=== PATIENT | male | born 1960 | race Caucasian/White ===

== ENCOUNTER 2017-10-22 01:45 | Inpatient (IN) | payer OTHER ==
[~2017-10-22] VITALS: Ht 177.8 cm; Wt 97.3 kg
[2017-10-22 02:25] LABS: Basophils # (auto) 0.2 uL; Eosinophils # (auto) 0.1 uL; Eosinophils % (auto) 0.6 % (0.0-7.0); Hemoglobin 16.4 g/dL (13.5-17.5); Lymphocytes # (auto) 3.2 uL; Lymphocytes % (auto) 20.9 % (10.0-50.0); Mean Corpuscular Hemoglobin 31.5 pg (28.0-32.0); Mean Corpuscular Hgb Conc. 34.2 g/dL (32.0-36.0); Monocytes # (auto) 0.9 uL; Monocytes % (auto) 5.6 % (0.0-12.0); Neutrophils # (auto) 11.1 uL; Neutrophils % (auto) 71.9 % (37.0-80.0); Platelet Count (auto) 289 10^3/uL (140-450); Red Blood Cells 5.22 10^6/uL (4.5-5.90); Red Cell Distribution Width 14.5 % (11.8-14.3); White Blood Cell 15.5 10^3/uL (4.4-10.8)
[2017-10-22 02:37] LABS: INR 0.92 (0.9-1.15); Partial Thromboplastin Time 22.9 sec (22.64-33.71)
[2017-10-22 02:40] LABS: Albumin 3.8 g/dL (3.4-5.0); BUN/Creatinine Ratio 13.9; Bilirubin, Total 0.7 mg/dL (0.2-1.0); Calcium 8.9 mg/dL (8.5-10.1); Total Protein 7.7 g/dL (6.4-8.2)
[2017-10-22] MEDS ORDERED: SODIUM CHLORIDE 0.9% 1,000 ML IV ONE (07:26)
[2017-10-22 07:29] LABS: Alcohol, Urine < 3.0 mg/dL (0-5); Amphetamine Screen, Urine NEGATIVE (NEGATIVE); Barbiturate Scree,Urine NEGATIVE (NEGATIVE); Benzodiazephine Screen, Urine NEGATIVE (NEGATIVE); Cocaine Screen, Urine NEGATIVE (NEGATIVE); Phencyclidine Screen, Urine NEGATIVE (NEGATIVE)
[2017-10-22 07:30] LABS: Urine Bacteria NONE SEEN /hpf (None Seen); Urine Blood 3+ /uL (Negative); Urine Mucus FEW (None Seen); Urine Specific Gravity 1.015 (1.001-1.035); Urine WBC 1 /hpf (0 - 3)
[2017-10-22] MEDS ORDERED: cefTRIAXone 1GM/10ml IVPUSH 10 ML IV ONE (07:30)
[2017-10-22] MEDS ORDERED: metroNIDAZOLE 500MG/100ML 100 ML IV ONE (07:30)
[2017-10-22 07:31] LABS: Cannabinoid Screen, Urine NEGATIVE (NEGATIVE); Opiate Scree,Urine NEGATIVE (NEGATIVE)
[2017-10-22] MEDS ORDERED: LIDOCAINE 2% JELLY 11ml (GLYDO) ONE (08:27)
[2017-10-22] MEDS ORDERED: TEMAZEPAM 15 MG CAP PO PRN (13:00)
[2017-10-22] MEDS ORDERED: LORazepam 0.5 MG TAB PO PRN (13:00)
[2017-10-22] MEDS ORDERED: PROMETHAZINE HCL 25 MG/ML 1ML IV PRN (13:00)
[2017-10-22] MEDS ORDERED: MORPHINE SULF INJ 2 MG/ML SYRINGE 1ML IV PRN (13:00)
[2017-10-22] MEDS ORDERED: NITROGLYCERIN 0.4 MG SL TAB SL PRN (13:00)
[2017-10-22] MEDS ORDERED: MORPHINE SULFATE 4 MG/ML SYR/VIAL IV PRN (13:00)
[2017-10-22] MEDS: SODIUM CHLORIDE 0.9% 1,000 ML IV SCH (13:54)
[2017-10-22] MEDS: FAMOTIDINE (10MG/ML) 2ML VL IV SCH ×2 (13:54→22:13)
[2017-10-22] MEDS: ACETAMINOPHEN 500 MG TAB PO PRN ×2 (15:37→22:14)
[2017-10-22 16:45] VITALS: BP 151/88
[2017-10-22] MEDS: metroNIDAZOLE 500MG/100ML 100 ML IV SCH (17:43)
[2017-10-22 21:55] VITALS: BP 126/86
[2017-10-23] MEDS: SODIUM CHLORIDE 0.9% 1,000 ML IV SCH ×3 (00:08→18:59)
[2017-10-23] MEDS: metroNIDAZOLE 500MG/100ML 100 ML IV SCH ×4 (00:08→17:37)
[2017-10-23 05:05] VITALS: BP 145/82
[2017-10-23 06:42] LABS: Basophils # (auto) 0.1 uL; Basophils % (auto) 0.6 % (0.0-2.0); Eosinophils # (auto) 0.1 uL; Eosinophils % (auto) 0.5 % (0.0-7.0); Hematocrit 45.4 % (41.0-53.0); Hemoglobin 15.4 g/dL (13.5-17.5); Lymphocytes # (auto) 1.7 uL; Lymphocytes % (auto) 14.6 % (10.0-50.0); Mean Corpuscular Hemoglobin 31.6 pg (28.0-32.0); Mean Corpuscular Hgb Conc. 33.9 g/dL (32.0-36.0); Mean Corpuscular Volume 93.1 fL (80.0-100.0); Monocytes % (auto) 8.9 % (0.0-12.0); Neutrophils # (auto) 8.7 uL; Neutrophils % (auto) 75.4 % (37.0-80.0); Nucleated Red Blood Cells % 0.1 %; Platelet Count (auto) 221 10^3/uL (140-450); Red Blood Cells 4.87 10^6/uL (4.5-5.90); Red Cell Distribution Width 14.6 % (11.8-14.3); White Blood Cell 11.6 10^3/uL (4.4-10.8)
[2017-10-23 07:11] LABS: Albumin 3.2 g/dL (3.4-5.0); Calcium 8.8 mg/dL (8.5-10.1); Potassium 3.6 mmol/L (3.5-5.1)
[2017-10-23 07:12] LABS: BUN/Creatinine Ratio 13.7
[2017-10-23 08:57] VITALS: BP 161/89
[2017-10-23] MEDS: cefTRIAXone 1GM/10ml IVPUSH 10 ML IV SCH (09:00)
[2017-10-23] MEDS: ENOXAPARIN SOD 40 MG/0.4 ML SYRINGE SC SCH (09:42)
[2017-10-23] MEDS: FAMOTIDINE (10MG/ML) 2ML VL IV SCH ×2 (09:42→22:08)
[2017-10-23 11:31] VITALS: BP 150/90
[2017-10-23] MEDS: HYDROcodone-ACET 5/325MG TAB PO PRN ×2 (13:38→20:39)
[2017-10-23] MEDS ORDERED: TAMSULOSIN HYDROCHLORIDE 0.4 MG CAP PO ONE (15:30)
[2017-10-23 16:47] VITALS: BP 136/83
[2017-10-23] MEDS: ACETAMINOPHEN 500 MG TAB PO PRN (18:09)
[2017-10-23] MEDS ORDERED: MORPHINE SULFATE 4 MG/ML SYR/VIAL IV PRN (20:15)
[2017-10-23 23:15] VITALS: BP 134/78
[2017-10-24] MEDS: metroNIDAZOLE 500MG/100ML 100 ML IV SCH ×5 (00:14→23:55)
[2017-10-24] MEDS: SODIUM CHLORIDE 0.9% 1,000 ML IV SCH ×2 (04:59→14:59)
[2017-10-24 05:28] VITALS: BP 134/76
[2017-10-24 08:06] LABS: Basophils # (auto) 0.1 uL; Basophils % (auto) 1.2 % (0.0-2.0); Eosinophils # (auto) 0 uL; Eosinophils % (auto) 0.2 % (0.0-7.0); Hematocrit 44.7 % (41.0-53.0); Hemoglobin 15.4 g/dL (13.5-17.5); Lymphocytes # (auto) 1.2 uL; Lymphocytes % (auto) 11.4 % (10.0-50.0); Mean Corpuscular Hemoglobin 31.8 pg (28.0-32.0); Mean Corpuscular Hgb Conc. 34.3 g/dL (32.0-36.0); Mean Corpuscular Volume 92.6 fL (80.0-100.0); Monocytes # (auto) 0.8 uL; Monocytes % (auto) 7.5 % (0.0-12.0); Neutrophils # (auto) 8.8 uL; Neutrophils % (auto) 79.7 % (37.0-80.0); Platelet Count (auto) 228 10^3/uL (140-450); Red Blood Cells 4.83 10^6/uL (4.5-5.90); Red Cell Distribution Width 14.5 % (11.8-14.3)
[2017-10-24 08:13] LABS: BUN/Creatinine Ratio 11.4; Calcium 8.7 mg/dL (8.5-10.1); Potassium 3.6 mmol/L (3.5-5.1)
[2017-10-24 09:00] VITALS: BP 144/73
[2017-10-24] MEDS: cefTRIAXone 1GM/10ml IVPUSH 10 ML IV SCH (09:04)
[2017-10-24] MEDS: FAMOTIDINE (10MG/ML) 2ML VL IV SCH ×2 (09:04→22:00)
[2017-10-24] MEDS: TAMSULOSIN HYDROCHLORIDE 0.4 MG CAP PO SCH (09:05)
[2017-10-24] MEDS: ACETAMINOPHEN 500 MG TAB PO PRN (09:05)
[2017-10-24] MEDS: ENOXAPARIN SOD 40 MG/0.4 ML SYRINGE SC SCH (09:05)
[2017-10-24] MEDS: ASPirin-EC 81 mg tab PO SCH (10:24)
[2017-10-24 13:00] VITALS: BP 137/70
[2017-10-24 16:46] VITALS: BP 133/76
[2017-10-24 22:00] VITALS: BP 139/86
[2017-10-24] MEDS: METOPROLOL TARTRATE 25 MG TAB PO SCH (22:51)
[2017-10-25] MEDS: HYDROcodone-ACET 5/325MG TAB PO PRN (00:56)
[2017-10-25] MEDS: SODIUM CHLORIDE 0.9% 1,000 ML IV SCH ×2 (00:59→10:59)
[2017-10-25 05:00] VITALS: BP 132/91
[2017-10-25] MEDS: metroNIDAZOLE 500MG/100ML 100 ML IV SCH (06:32)
[2017-10-25 08:15] VITALS: BP 132/94
[2017-10-25 08:34] LABS: Basophils # (auto) 0.1 uL; Basophils % (auto) 0.8 % (0.0-2.0); Eosinophils # (auto) 0.1 uL; Hematocrit 41.7 % (41.0-53.0); Hemoglobin 14.3 g/dL (13.5-17.5); Lymphocytes # (auto) 1.5 uL; Lymphocytes % (auto) 18.5 % (10.0-50.0); Mean Corpuscular Hemoglobin 31.6 pg (28.0-32.0); Mean Corpuscular Hgb Conc. 34.2 g/dL (32.0-36.0); Mean Corpuscular Volume 92.4 fL (80.0-100.0); Monocytes % (auto) 12.3 % (0.0-12.0); Neutrophils # (auto) 5.4 uL; Neutrophils % (auto) 67.4 % (37.0-80.0); Platelet Count (auto) 233 10^3/uL (140-450); Red Blood Cells 4.52 10^6/uL (4.5-5.90); White Blood Cell 7.9 10^3/uL (4.4-10.8)
[2017-10-25 08:39] LABS: Calcium 8.7 mg/dL (8.5-10.1); Potassium 3.4 mmol/L (3.5-5.1)
[2017-10-25] MEDS ORDERED: CIPR-173 PO (08:39)
[2017-10-25] MEDS ORDERED: METR500T PO (08:39)
[2017-10-25] MEDS ORDERED: TAM04C PO (08:39)
[2017-10-25] MEDS ORDERED: ASP81EC PO (08:39)
[2017-10-25 08:42] LABS: BUN/Creatinine Ratio 12.5
[2017-10-25 09:00] VITALS: BP 132/94
[2017-10-25] MEDS: ENOXAPARIN SOD 40 MG/0.4 ML SYRINGE SC SCH (09:20)
[2017-10-25] MEDS: FAMOTIDINE (10MG/ML) 2ML VL IV SCH (09:20)
[2017-10-25] MEDS: TAMSULOSIN HYDROCHLORIDE 0.4 MG CAP PO SCH (09:21)
[2017-10-25] MEDS: METOPROLOL TARTRATE 25 MG TAB PO SCH (09:21)
[2017-10-25] MEDS: ASPirin-EC 81 mg tab PO SCH (09:21)
[2017-10-25] MEDS: cefTRIAXone 1GM/10ml IVPUSH 10 ML IV SCH (09:21)
[2017-10-25 10:07] VITALS: BP 132/94
[2017-10-25] MEDS ORDERED: POTASSIUM CHL 20 Meq TABLET PO ONE (10:15)
== END 2017-10-25 11:25 | disposition home or self-care (01) | DRG 244 ==
LOC: ER 01:46 → TELE 01:47 → TELE-WESTW 15:04
PROVIDERS: ADMIT Internal Medicine; ATTEND Internal Medicine
DX: K57.32 Diverticulitis of large intestine without perforation or abscess without bleeding (principal); E11.65 Type 2 diabetes mellitus with hyperglycemia; I10 Essential (primary) hypertension; F17.210 Nicotine dependence, cigarettes, uncomplicated; I48.0 Paroxysmal atrial fibrillation; N40.1 Benign prostatic hyperplasia with lower urinary tract symptoms; R31.29 Other microscopic hematuria; B18.2 Chronic viral hepatitis C; R35.0 Frequency of micturition; K57.90 Diverticulosis of intestine, part unspecified, without perforation or abscess without bleeding; E66.9 Obesity, unspecified; R33.8 Other retention of urine; Z82.3 Family history of stroke; Z82.49 Family history of ischemic heart disease and other diseases of the circulatory system; Z87.442 Personal history of urinary calculi; Z68.30 Body mass index [BMI] 30.0-30.9, adult; Z88.5 Allergy status to narcotic agent
CPT/HCPCS: 36415; 51702; 74176; 80048; 80053; 80307; 81001; 82150; 83690; 84484; 85025; 85610; 85730; 93005; 93306; 96361; 96365; 96375; J3490

== ENCOUNTER 2017-11-14 22:04 | Inpatient (IN) | payer OTHER ==
[~2017-11-14] VITALS: Ht 177.8 cm; Wt 91.6 kg
[~2017-11-14 22:04] MED LIST: ASP81EC PO; CIPR-173 PO; METR500T PO; TAM04C PO
[2017-11-14 23:01] LABS: Basophils # (auto) 0.1 uL; Eosinophils # (auto) 0.1 uL; Eosinophils % (auto) 0.6 % (0.0-7.0); Hematocrit 46.1 % (41.0-53.0); Hemoglobin 15.5 g/dL (13.5-17.5); Lymphocytes % (auto) 14.1 % (10.0-50.0); Mean Corpuscular Hemoglobin 31.2 pg (28.0-32.0); Mean Corpuscular Hgb Conc. 33.7 g/dL (32.0-36.0); Mean Corpuscular Volume 92.4 fL (80.0-100.0); Monocytes # (auto) 1.1 uL; Monocytes % (auto) 7.7 % (0.0-12.0); Neutrophils # (auto) 10.8 uL; Neutrophils % (auto) 76.6 % (37.0-80.0); Nucleated Red Blood Cells % 0.2 %; Platelet Count (auto) 386 10^3/uL (140-450); Red Blood Cells 4.98 10^6/uL (4.5-5.90); Red Cell Distribution Width 14.1 % (11.8-14.3); White Blood Cell 14.1 10^3/uL (4.4-10.8)
[2017-11-14 23:19] LABS: Albumin 3.7 g/dL (3.4-5.0); BUN/Creatinine Ratio 14.6; Bilirubin, Total 0.2 mg/dL (0.2-1.0); Calcium 9.2 mg/dL (8.5-10.1); Potassium 4.1 mmol/L (3.5-5.1); Total Protein 8.3 g/dL (6.4-8.2)
[2017-11-15] VITALS (8 sets, daily range): BP systolic 96–130; BP diastolic 58–78
[2017-11-15] MEDS ORDERED: SODIUM CHLORIDE 0.9% 500 ML IVB ONE (01:52)
[2017-11-15] MEDS ORDERED: MORPHINE SULFATE 4 MG/ML SYR/VIAL IV ONE (02:00)
[2017-11-15] MEDS ORDERED: ONDANSETRON HCL 4 MG/2 ML VIAL IV ONE (02:00)
[2017-11-15 02:38] LABS: INR 0.88 (0.9-1.15); Partial Thromboplastin Time 27.6 sec (22.64-33.71); Prothrombin Time 9.6 sec (9.37-12.3)
[2017-11-15] MEDS ORDERED: PIPERACILLIN-TAZOB 3.375GM 50 ML IV ONE (03:00)
[2017-11-15] MEDS ORDERED: PIPERACILLIN-TAZO 4.5GM 50 ML IV ONE (03:00)
[2017-11-15] MEDS ORDERED: metroNIDAZOLE 500MG/100ML 100 ML IV ONE (03:00)
[2017-11-15] MEDS ORDERED: ACETAMINOPHEN 500 MG TAB PO PRN (03:45)
[2017-11-15] MEDS ORDERED: ONDANSETRON HCL 4 MG/2 ML VIAL IV PRN (03:45)
[2017-11-15 03:58] LABS: Urine Bacteria MOD /hpf (None Seen); Urine Blood 2+ /uL (Negative); Urine Budding Yeast OCCASIONAL /hpf (None Seen); Urine Mucus FEW (None Seen); Urine Specific Gravity 1.015 (1.001-1.035); Urine WBC <1 /hpf (0 - 3)
[2017-11-15] MEDS: SODIUM CHLORIDE 0.9% 1,000 ML IV SCH ×2 (05:51→13:45)
[2017-11-15] MEDS: MORPHINE SULFATE 4 MG/ML SYR/VIAL IV PRN ×2 (08:37→12:37)
[2017-11-15 08:43] LABS: Basophils # (auto) 0.1 uL; Basophils % (auto) 0.4 % (0.0-2.0); Eosinophils # (auto) 0 uL; Eosinophils % (auto) 0.1 % (0.0-7.0); Hematocrit 43.1 % (41.0-53.0); Hemoglobin 14.3 g/dL (13.5-17.5); Lymphocytes # (auto) 1.6 uL; Lymphocytes % (auto) 9.5 % (10.0-50.0); Mean Corpuscular Hemoglobin 30.5 pg (28.0-32.0); Mean Corpuscular Hgb Conc. 33.2 g/dL (32.0-36.0); Mean Corpuscular Volume 91.9 fL (80.0-100.0); Monocytes # (auto) 1.4 uL; Monocytes % (auto) 8.8 % (0.0-12.0); Neutrophils # (auto) 13.3 uL; Neutrophils % (auto) 81.2 % (37.0-80.0); Platelet Count (auto) 302 10^3/uL (140-450); Red Blood Cells 4.69 10^6/uL (4.5-5.90); Red Cell Distribution Width 14.4 % (11.8-14.3); White Blood Cell 16.3 10^3/uL (4.4-10.8)
[2017-11-15 09:01] LABS: BUN/Creatinine Ratio 13.8; Calcium 8.2 mg/dL (8.5-10.1); Potassium 4.1 mmol/L (3.5-5.1)
[2017-11-15] MEDS ORDERED: PPN PER PHARMACY 0 ML IV SCH (10:30)
[2017-11-15] MEDS: HYDROcodone-ACET 5/325MG TAB PO PRN (10:38)
[2017-11-15] MEDS: PANTOPRAZOLE 40 MG/10 ML VIAL IV SCH ×2 (10:39→22:19)
[2017-11-15] MEDS: cefTRIAXone 1GM/10ml IVPUSH 10 ML IV SCH (10:39)
[2017-11-15 11:08] LABS: Albumin 3.2 g/dL (3.4-5.0); Bilirubin, Direct 0.2 mg/dL (0-0.2); Bilirubin, Total 0.9 mg/dL (0.2-1.0); Magnesium 1.8 mg/dL (1.6-2.6); Phosphorus 2.9 mg/dL (2.5-4.90); Total Protein 7.3 g/dL (6.4-8.2)
[2017-11-15] MEDS ORDERED: IPRATROPIUM BROM 0.5 MG/2.5ML INH SOL NEB PRN (11:15)
[2017-11-15] MEDS ORDERED: ALBUTEROL SULF 2.5 MG/0.5ML(0.5%) NEB SOLN NEB PRN (11:15)
[2017-11-15] MEDS: metroNIDAZOLE 500MG/100ML 100 ML IV SCH ×2 (15:30→17:46)
[2017-11-15] MEDS ORDERED: ACETAMINOPHEN 325 MG TAB PO PRN (17:30)
[2017-11-15] MEDS ORDERED: PPN PER PHARMACY IV NR ×10 (20:00)
[2017-11-16] MEDS ORDERED: DEXTROSE (50%) 50ML SYRG IV SCH
[2017-11-16] MEDS: ACCU-CHEK COMFORT CURVE STRIP VI SCH ×4 (00:01→18:44)
[2017-11-16] MEDS: metroNIDAZOLE 500MG/100ML 100 ML IV SCH ×4 (00:03→22:35)
[2017-11-16] MEDS: SODIUM CHLORIDE 0.9% 1,000 ML IV SCH ×2 (00:03→10:56)
[2017-11-16] MEDS: InsuLIN REG 1unit/0.01ml Soln (100units/ml) SC SCH ×4 (06:00→18:00)
[2017-11-16 06:11] VITALS: BP 136/83
[2017-11-16 07:06] LABS: BUN/Creatinine Ratio 11.8; Calcium 8.6 mg/dL (8.5-10.1); Magnesium 2.3 mg/dL (1.6-2.6); Phosphorus 2.3 mg/dL (2.5-4.90); Potassium 3.8 mmol/L (3.5-5.1); Total Protein 7.5 g/dL (6.4-8.2)
[2017-11-16 08:00] VITALS: BP 118/66
[2017-11-16] MEDS: MORPHINE SULFATE 4 MG/ML SYR/VIAL IV PRN (08:28)
[2017-11-16 09:01] VITALS: BP 118/66
[2017-11-16] MEDS: cefTRIAXone 1GM/10ml IVPUSH 10 ML IV SCH (10:55)
[2017-11-16] MEDS: PANTOPRAZOLE 40 MG/10 ML VIAL IV SCH ×2 (10:56→22:35)
[2017-11-16 12:48] VITALS: BP 132/76
[2017-11-16 17:00] VITALS: BP 137/81
[2017-11-16] MEDS ORDERED: PPN PER PHARMACY IV NR ×10 (20:00)
[2017-11-16 22:00] VITALS: BP 125/98
[2017-11-17 05:00] VITALS: BP 131/82
[2017-11-17] MEDS: InsuLIN REG 1unit/0.01ml Soln (100units/ml) SC SCH ×4 (06:00→17:16)
[2017-11-17] MEDS: metroNIDAZOLE 500MG/100ML 100 ML IV SCH ×3 (06:39→21:08)
[2017-11-17] MEDS: ACCU-CHEK COMFORT CURVE STRIP VI SCH ×4 (06:41→17:16)
[2017-11-17] MEDS: SODIUM CHLORIDE 0.9% 1,000 ML IV SCH (06:55)
[2017-11-17 07:28] LABS: Albumin 2.9 g/dL (3.4-5.0); Calcium 8.4 mg/dL (8.5-10.1); Magnesium 2.3 mg/dL (1.6-2.6); Potassium 3.8 mmol/L (3.5-5.1)
[2017-11-17 07:31] LABS: Bilirubin, Total 0.6 mg/dL (0.2-1.0); Phosphorus 2.8 mg/dL (2.5-4.90); Total Protein 7.4 g/dL (6.4-8.2)
[2017-11-17 08:00] VITALS: BP 129/91
[2017-11-17] MEDS: HYDROcodone-ACET 5/325MG TAB PO PRN ×2 (08:18→17:17)
[2017-11-17] MEDS: MORPHINE SULFATE 4 MG/ML SYR/VIAL IV PRN ×3 (08:20→20:43)
[2017-11-17 08:57] VITALS: BP 129/91
[2017-11-17] MEDS: cefTRIAXone 1GM/10ml IVPUSH 10 ML IV SCH (09:13)
[2017-11-17] MEDS: PANTOPRAZOLE 40 MG/10 ML VIAL IV SCH ×2 (09:13→21:08)
[2017-11-17 09:14] LABS: Basophils # (auto) 0.1 uL; Basophils % (auto) 0.7 % (0.0-2.0); Eosinophils # (auto) 0.1 uL; Eosinophils % (auto) 0.6 % (0.0-7.0); Hematocrit 43.3 % (41.0-53.0); Hemoglobin 14.4 g/dL (13.5-17.5); Lymphocytes # (auto) 1.5 uL; Lymphocytes % (auto) 14.5 % (10.0-50.0); Mean Corpuscular Hemoglobin 30.9 pg (28.0-32.0); Mean Corpuscular Hgb Conc. 33.3 g/dL (32.0-36.0); Mean Corpuscular Volume 92.6 fL (80.0-100.0); Monocytes # (auto) 1.1 uL; Monocytes % (auto) 10.8 % (0.0-12.0); Neutrophils # (auto) 7.3 uL; Neutrophils % (auto) 73.4 % (37.0-80.0); Platelet Count (auto) 294 10^3/uL (140-450); Red Blood Cells 4.68 10^6/uL (4.5-5.90); Red Cell Distribution Width 14.3 % (11.8-14.3)
[2017-11-17 13:05] VITALS: BP 120/99
[2017-11-17 17:02] VITALS: BP 141/103
[2017-11-17] MEDS ORDERED: PPN PER PHARMACY IV NR ×10 (20:00)
[2017-11-17 22:00] VITALS: BP 130/87
[2017-11-18 05:00] VITALS: BP 112/47
[2017-11-18] MEDS: SODIUM CHLORIDE 0.9% 1,000 ML IV SCH (05:14)
[2017-11-18] MEDS: ACCU-CHEK COMFORT CURVE STRIP VI SCH ×4 (05:19→18:00)
[2017-11-18] MEDS: metroNIDAZOLE 500MG/100ML 100 ML IV SCH ×2 (05:19→14:50)
[2017-11-18] MEDS: MORPHINE SULFATE 4 MG/ML SYR/VIAL IV PRN (05:19)
[2017-11-18] MEDS: InsuLIN REG 1unit/0.01ml Soln (100units/ml) SC SCH ×4 (06:00→18:00)
[2017-11-18 07:16] LABS: INR 0.98 (0.9-1.15); Prothrombin Time 10.7 sec (9.37-12.3)
[2017-11-18 07:26] LABS: BUN/Creatinine Ratio 20.3; Bilirubin, Total 0.5 mg/dL (0.2-1.0); Calcium 8.7 mg/dL (8.5-10.1); Magnesium 2.6 mg/dL (1.6-2.6); Phosphorus 3.3 mg/dL (2.5-4.90); Potassium 3.9 mmol/L (3.5-5.1); Total Protein 7.8 g/dL (6.4-8.2)
[2017-11-18] MEDS: cefTRIAXone 1GM/10ml IVPUSH 10 ML IV SCH (08:22)
[2017-11-18] MEDS: PANTOPRAZOLE 40 MG/10 ML VIAL IV SCH (08:22)
[2017-11-18 09:17] VITALS: BP 134/83
[2017-11-18 09:52] VITALS: BP 134/83
[2017-11-18 13:24] VITALS: BP 130/89
[2017-11-18] MEDS ORDERED: LIDOCAINE 1% HCL (LOCAL ANESTH.) INJ 20ML MDV ID ONE (16:45)
[2017-11-18 17:09] VITALS: BP 137/81
[2017-11-18 17:22] VITALS: BP 137/81
[2017-11-18] MEDS ORDERED: PPN PER PHARMACY IV NR ×9 (20:00)
== END 2017-11-18 18:25 | disposition home or self-care (01) | DRG 244 ==
LOC: ER 22:04 → OVERFLOW 22:05 → EAST 11-15 04:15
PROVIDERS: ADMIT Nurse Practitioner Family; ATTEND Internal Medicine
PROC: 02HV33Z Insertion of Infusion Device into Superior Vena Cava, Percutaneous Approach (ICD-10-PCS; principal; 2017-11-18)
DX: K57.20 Diverticulitis of large intestine with perforation and abscess without bleeding (principal); R65.10 Systemic inflammatory response syndrome (SIRS) of non-infectious origin without acute organ dysfunction; K76.0 Fatty (change of) liver, not elsewhere classified; I48.0 Paroxysmal atrial fibrillation; B19.20 Unspecified viral hepatitis C without hepatic coma; J44.9 Chronic obstructive pulmonary disease, unspecified; F17.210 Nicotine dependence, cigarettes, uncomplicated; N40.0 Benign prostatic hyperplasia without lower urinary tract symptoms; N50.819 Testicular pain, unspecified; K57.90 Diverticulosis of intestine, part unspecified, without perforation or abscess without bleeding; Z88.5 Allergy status to narcotic agent; Z89.421 Acquired absence of other right toe(s); Z87.442 Personal history of urinary calculi; Z83.3 Family history of diabetes mellitus; Z82.49 Family history of ischemic heart disease and other diseases of the circulatory system
CPT/HCPCS: 36415; 36569; 71045; 74176; 80048; 80053; 80076; 81001; 82040; 82150; 82962; 83690; 83735; 84100; 84478; 85025; 85610; 85730; 87081; 93005; 96361; 96365; 96375; C9113; J2405; J2543; J3490; J7131

== ENCOUNTER 2023-03-02 18:34 | Emergency (ER) | payer OTHER ==
[~2023-03-02] VITALS: Ht 177.8 cm; Wt 100.0 kg
[~2023-03-02 18:34] MED LIST changes: -ASP81EC PO; +ASPI-394 PO; -CIPR-173 PO; -METR500T PO; -TAM04C PO; +TAMS-35 PO
[2023-03-02 19:09] VITALS: BP 183/125
[2023-03-02] MEDS ORDERED: CEPHALEXIN 250 MG CAP PO ONE (19:15)
[2023-03-02 19:32] LABS: Basophils # (auto) 0.1 10 ^3/uL (0-0.2); Basophils % (auto) 0.6 % (0.0-2.0); Eosinophils # (auto) 0 10 ^3/uL (0-0.8); Eosinophils % (auto) 0.3 % (0.0-7.0); Hematocrit 49.8 % (41.0-53.0); Lymphocytes # (auto) 1.3 10 ^3/uL (0.4-5.4); Lymphocytes % (auto) 9.3 % (10.0-50.0); Mean Corpuscular Hemoglobin 31.5 pg (28.0-32.0); Mean Corpuscular Hgb Conc. 34.1 g/dL (32.0-36.0); Mean Corpuscular Volume 92.5 fL (80.0-100.0); Monocytes # (auto) 0.8 10 ^3/uL (0-1.3); Monocytes % (auto) 6.1 % (0.0-12.0); Neutrophils # (auto) 11.3 10 ^3/uL (1.6-8.6); Neutrophils % (auto) 83.7 % (37.0-80.0); Red Blood Cells 5.38 10^6/uL (4.5-5.90); Red Cell Distribution Width 14.6 % (11.8-14.3); White Blood Cell 13.5 10^3/uL (4.4-10.8)
[2023-03-02 19:50] LABS: Calcium 9.2 mg/dL (8.5-10.1); Potassium 3.9 mmol/L (3.5-5.1)
[2023-03-02 19:54] LABS: BUN/Creatinine Ratio 18.1 (10.0-20.0); Bilirubin, Total 0.4 mg/dL (0.2-1.0); Total Protein 7.3 g/dL (6.4-8.2)
[2023-03-02] MEDS ORDERED: IOHEXOL 300 MG/ML 100ML BOTTLE IJ ONE (20:08)
[2023-03-03] MEDS ORDERED: CEPH500T PO (01:18)
[2023-03-03] MEDS ORDERED: ACET-6 PO (01:18)
== END 2023-03-03 02:13 | disposition home or self-care (01) ==
LOC: EDBD 18:34 → ER 18:56
DX: S13.9XXA Sprain of joints and ligaments of unspecified parts of neck, initial encounter (principal); R51.9 Headache, unspecified; N20.0 Calculus of kidney; F17.210 Nicotine dependence, cigarettes, uncomplicated; Z88.6 Allergy status to analgesic agent; V49.9XXA Car occupant (driver) (passenger) injured in unspecified traffic accident, initial encounter; Y93.89 Activity, other specified; Y92.89 Other specified places as the place of occurrence of the external cause; Y99.8 Other external cause status
CPT/HCPCS: 36415; 70450; 71260; 72125; 72192; 74177; 80053; 84484; 85025; 99285; Q9967

== ENCOUNTER 2024-04-14 06:58 | Day surgery (SDC) | payer MEDICAID ==
[~2024-04-14] VITALS: Ht 177.8 cm; Wt 97.5 kg
[~2024-04-14 06:58] MED LIST changes: +ACET-1080 PO; +ALBU108A5 IN; +BECL80AE11 IN; +CEFD300C2 PO; +CHOL20002 PO; +HYDR-4072 PO; +LID35TP TOP; +LOS25T PO; +MET25T PO; +ROSU20TA56 PO
[2024-04-14] MEDS ORDERED: LIDOCAINE 2%HCL (LOCAL ANESTH.) INJ 20ML MDV ONE ×2 (09:20→09:38)
== END 2024-04-14 10:34 | disposition home or self-care (01) ==
LOC: CATH 06:58
PROVIDERS: ATTEND Internal Medicine
DX: I47.19 Other supraventricular tachycardia (principal); I48.0 Paroxysmal atrial fibrillation; J44.9 Chronic obstructive pulmonary disease, unspecified; F17.210 Nicotine dependence, cigarettes, uncomplicated; Z82.49 Family history of ischemic heart disease and other diseases of the circulatory system; Z83.3 Family history of diabetes mellitus
CPT/HCPCS: 33285; C1764; J7030; 99152